=== PATIENT | male | born 1950 | race Caucasian/White ===

== ENCOUNTER → 2023-06-11 09:59 | Outpatient (REF) | payer MEDICARE, OTHER, SELFPAY ==
[2023-06-11 11:37] LABS: Prolactin 11.5 ng/ml (3.7-17.9)
[2023-06-11 11:52] LABS: Estradiol 44.1 pg/ml (5.4-66)
[2023-06-13 11:13] LABS: % Free Testosterone 2.2 % (1.6-2.9); Free Testosterone 52 pg/mL (47-244); Sex Hormone Binding Globulin 22 nmol/L (19-76); Total Testosterone 243 ng/dL (300-720)
== END ==
LOC: RAD 09:59
PROVIDERS: ATTENDING PHYSICIAN Internal Medicine Endocrinology, Diabetes & Metabolism; FAMILY PHYSICIAN Family Medicine; REFERRING PHYSICIAN Family Medicine Geriatric Medicine
DX: E29.1 Testicular hypofunction (principal); C61 Malignant neoplasm of prostate; E23.7 Disorder of pituitary gland, unspecified; M85.80 Other specified disorders of bone density and structure, unspecified site; M81.0 Age-related osteoporosis without current pathological fracture
CPT/HCPCS: 36415; 77080; 82670; 84146; 84270; 84402; 84403

== ENCOUNTER → 2023-08-31 12:19 | Outpatient (REF) | payer MEDICARE, OTHER, SELFPAY ==
[2023-08-31 15:01] LABS: PSA, Total - Diagnostic 1.37 ng/ml (0.0-4.0)
== END ==
LOC: REG 12:19
PROVIDERS: ATTENDING PHYSICIAN Family Medicine Geriatric Medicine; FAMILY PHYSICIAN Family Medicine; REFERRING PHYSICIAN Specialist
DX: C61 Malignant neoplasm of prostate (principal); Z79.818 Long term (current) use of other agents affecting estrogen receptors and estrogen levels
CPT/HCPCS: 36415; 84153

== ENCOUNTER → 2023-09-07 07:12 | Outpatient (REF) | payer MEDICARE, OTHER, SELFPAY ==
[2023-09-10 01:38] LABS: % Free Testosterone 2.3 % (1.6-2.9); Free Testosterone 50 pg/mL (47-244); Sex Hormone Binding Globulin 19 nmol/L (19-76); Total Testosterone 219 ng/dL (300-720)
== END ==
LOC: REG 07:12
PROVIDERS: ATTENDING PHYSICIAN Family Medicine Geriatric Medicine; FAMILY PHYSICIAN Family Medicine; REFERRING PHYSICIAN Specialist
DX: C61 Malignant neoplasm of prostate (principal); Z79.818 Long term (current) use of other agents affecting estrogen receptors and estrogen levels
CPT/HCPCS: 36415; 84270; 84402; 84403

== ENCOUNTER → 2023-11-16 08:22 | Outpatient (REF) | payer MEDICARE, OTHER, SELFPAY ==
[2023-11-16 09:27] LABS: ALT (SGPT) 17 U/L (0-50); AST (SGOT) 21 U/L (17-59); Alkaline Phosphatase 104 U/L (38-126); Blood Urea Nitrogen 18 mg/dl (9-20); Calcium 9.6 mg/dl (8.4-10.2); Carbon Dioxide 29 mmol/L (22-30); Chloride 102 mmol/L (98-107); Glucose 129 mg/dl (70-99); HDL Cholesterol 35 mg/dl; LDL Cholesterol, Calculated 78 mg/dl; Sodium 137 mmol/L (135-145); Total Bilirubin 0.9 mg/dl (0.2-1.3); Total Cholesterol 142 mg/dl (50-199); Total Protein 6.7 g/dl (6.3-8.2); Triglyceride 148 mg/dl (10-149); Very Low Density Lipoprotein 29 mg/dl (0-30); eGFR > 60.00
[2023-11-16 10:38] LABS: PSA, Total - Diagnostic 0.91 ng/ml (0.0-4.0)
[2023-11-16 11:12] LABS: Glycohemoglobin (HgbA1c) 6.1 % (4.0-5.6)
[2023-11-17 14:48] LABS: % Free Testosterone 2.3 % (1.6-2.9); Free Testosterone 70 pg/mL (47-244); Sex Hormone Binding Globulin 19 nmol/L (19-76); Total Testosterone 302 ng/dL (300-720)
== END ==
LOC: REG 08:22
PROVIDERS: ATTENDING PHYSICIAN Family Medicine Geriatric Medicine; FAMILY PHYSICIAN Family Medicine
DX: C61 Malignant neoplasm of prostate (principal); Z79.818 Long term (current) use of other agents affecting estrogen receptors and estrogen levels; I10 Essential (primary) hypertension; E78.00 Pure hypercholesterolemia, unspecified; E11.9 Type 2 diabetes mellitus without complications
CPT/HCPCS: 36415; 80053; 80061; 83036; 84153; 84270; 84402; 84403

== ENCOUNTER → 2024-05-18 07:30 | Outpatient (REF) | payer MEDICARE, OTHER, SELFPAY ==
[2024-05-18 11:30] LABS: ALT (SGPT) 18 U/L (0-50); AST (SGOT) 18 U/L (17-59); Albumin 4.5 g/dl (3.5-5.0); Alkaline Phosphatase 99 U/L (38-126); Blood Urea Nitrogen 23 mg/dl (9-20); Calcium 9.3 mg/dl (8.4-10.2); Carbon Dioxide 28 mmol/L (22-30); Chloride 101 mmol/L (98-107); Glucose 122 mg/dl (70-99); HDL Cholesterol 38 mg/dl; LDL Cholesterol, Calculated 75 mg/dl; Potassium 4.6 mmol/L (3.5-5.1); Sodium 139 mmol/L (135-145); Total Bilirubin 0.9 mg/dl (0.2-1.3); Total Cholesterol 137 mg/dl (50-199); Total Protein 6.8 g/dl (6.3-8.2); Triglyceride 124 mg/dl (10-149); Very Low Density Lipoprotein 24 mg/dl (0-30); eGFR > 60.00
[2024-05-18 11:33] LABS: Vitamin D, 25-OH*** 30.3 ng/mL (30-80)
[2024-05-18 11:47] LABS: PSA, Total - Diagnostic 1.65 ng/ml (0.0-4.0)
== END ==
LOC: REG 07:30
PROVIDERS: ATTENDING PHYSICIAN Internal Medicine Endocrinology, Diabetes & Metabolism; FAMILY PHYSICIAN Family Medicine; REFERRING PHYSICIAN Family Medicine Geriatric Medicine
DX: E78.00 Pure hypercholesterolemia, unspecified (principal); E11.9 Type 2 diabetes mellitus without complications; I10 Essential (primary) hypertension; E29.1 Testicular hypofunction; M85.80 Other specified disorders of bone density and structure, unspecified site; C61 Malignant neoplasm of prostate
CPT/HCPCS: 36415; 80053; 80061; 82306; 83036; 84153; 84403

== ENCOUNTER → 2024-09-06 08:22 | Outpatient (REF) | payer MEDICARE, OTHER, SELFPAY ==
[2024-09-06 10:23] LABS: PSA, Total - Diagnostic 1.44 ng/ml (0.0-4.0)
== END ==
LOC: REG 08:22
PROVIDERS: ATTENDING PHYSICIAN Family Medicine Geriatric Medicine; FAMILY PHYSICIAN Family Medicine; OTHER PHYSICIAN Specialist
DX: R97.21 Rising PSA following treatment for malignant neoplasm of prostate (principal); Z12.5 Encounter for screening for malignant neoplasm of prostate
CPT/HCPCS: 36415; 84153

== ENCOUNTER → 2025-03-23 07:37 | Outpatient (REF) | payer MEDICARE, OTHER, SELFPAY ==
[2025-03-23 10:29] LABS: PSA, Total - Screen 1.43 ng/ml (0.0-4.0)
== END ==
LOC: REG 07:37
PROVIDERS: ATTENDING PHYSICIAN Family Medicine Geriatric Medicine
DX: C61 Malignant neoplasm of prostate (principal); Z79.818 Long term (current) use of other agents affecting estrogen receptors and estrogen levels
CPT/HCPCS: 36415; 84270; 84402; 84403; G0103